=== PATIENT | female | born 1980 | race Caucasian/White ===

== ENCOUNTER → 2016-12-24 | Outpatient (CLI) | payer BC | LOC: COL.PUL 08:00 | DX: R06.02 Shortness of breath (principal) ==

== ENCOUNTER → 2017-01-15 | Outpatient (CLI) | payer BC | LOC: BHSO 09:17 | DX: F31.81 Bipolar II disorder (principal) ==

== ENCOUNTER → 2017-07-28 | Outpatient (CLI) | payer BC | LOC: BHSO 13:02 | DX: F31.81 Bipolar II disorder (principal) | CPT/HCPCS: G0463 ==

== ENCOUNTER → 2018-01-21 | Outpatient (CLI) | payer BC | LOC: BHSO 14:03 | DX: F31.81 Bipolar II disorder (principal) ==